=== PATIENT | female | born 1995 | race African-American/Black ===

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

== ENCOUNTER 2020-02-21 09:56 | Emergency (ER) | payer OTHER ==
[~2020-02-21] VITALS: Ht 162.6 cm; Wt 131.5 kg
[2020-02-21 11:05] LABS: URINE BILIRUBIN NEGATIVE (Negative); URINE BLOOD NEGATIVE (Negative); URINE COLOR YELLOW; URINE GLUCOSE-RANDOM* NEGATIVE (Negative); URINE KETONES NEGATIVE (Negative); URINE LEUKOCYTES-REFLEX 2+ (Negative); URINE NITRITE-REFLEX NEGATIVE (Negative); URINE PROTEIN (DIPSTICK) NEGATIVE (Negative); URINE UROBILINOGEN 0.2 E.U./dl (0.2-1.0)
[2020-02-21 11:06] LABS: URINE CLARITY SL HAZY
[2020-02-21] MEDS ORDERED: NORVASC10 MG PO (11:22)
[2020-02-21 11:23] LABS: CASTS None Seen /LPF (None Seen); CRYSTALS None Seen /LPF (None Seen); SQUAMOUS >10 Many /LPF (0-3); URINE RBC 0-2 Rare /HPF (0-2); URINE WBC-REFLEX 0-5 Rare /HPF (0-5)
[2020-02-21] MEDS ORDERED: HYDROCHLOROTHIA25 M2 PO (11:23)
[2020-02-21] MEDS ORDERED: MEDROXYPROGESTERONE INJECTION (11:24)
[2020-02-21 12:00] LABS: ABSOLUTE NEUTROPHILS 2.3 thou/uL (1.4-8.2); BASOPHILS 0.5 % (0.0-2.0); HEMATOCRIT 40.1 % (37.0-47.0); HEMOGLOBIN 12.9 gm/dL (12.0-15.0); LYMPHOCYTES 29.4 % (24.0-44.0); MCH 25.4 pg (26.0-34.0); MCHC 32.2 g/dL (28.0-37.0); MCV 78.8 fL (80.0-100.0); MONOCYTES 14.5 % (1.0-8.0); PLATELET COUNT 332 thou/uL (150-400); POLYS 54.6 % (36.0-66.0); RBC 5.09 mil/uL (4.20-5.00); RDW 18.1 % (10.5-14.5); WBC 4.2 thou/uL (4.0-11.0)
--- NOTE | 2020-02-21 12:12 | EKG ---
[address] [address] ELECTROCARDIOGRAM REPORT Name: HERB DOSHI Room #: [facility] [id number] Admission: 02/21/20 Attend Phys: Discharge: Date of : [birth year] Report #: [id number] [facility] ED Test Date: 2020-02-21 Test Time: 10:26:03 Pat Name: HERB DOSHI Department: Room: Gender: F Pharmacist'S Aide: juan : 1995 Requested By: William Marrero Order Number: [id number] MD: Dharmesh Ann Measurements Intervals Clifford Rate: 80 P: 42 [place]: 136 QRS: 42 QRSD: 74 T: 23 QT: 366 QTc: 423 Interpretive Statements Sinus rhythm No previous ECG available for comparison Electronically Signed On 02-21-2020 12:11:55 [employer] by Dharmesh Ann [email or web address] <ELECTRONICALLY SIGNED> By: Dharmesh Ann MD, [facility] 02/21/20 1211 1026 1026 Dharmesh Ann MD, FACC /EPI
[2020-02-21 12:13] LABS: CALCIUM 9.9 mg/dL (8.5-10.1); CREATININE 0.6 mg/dL (0.6-1.0); POTASSIUM 3.4 mmol/L (3.5-5.1)
[2020-02-21] MEDS ORDERED: MECLIZINE HCL25 M1 PO ×2 (12:17→12:19)
[2020-02-21 12:32] VITALS: BP 158/94
== END 2020-02-21 12:33 | disposition home or self-care (01) ==
LOC: ER 09:56
PROVIDERS: Emergency Medicine
DX: R42 Dizziness and giddiness (principal); Z20.828 Contact with and (suspected) exposure to other viral communicable diseases; Z88.1 Allergy status to other antibiotic agents; Z79.899 Other long term (current) drug therapy

== ENCOUNTER 2020-09-02 02:36 | Emergency (ER) | payer OTHER ==
[~2020-09-02] VITALS: Ht 162.6 cm; Wt 129.3 kg
[~2020-09-02 02:36] MED LIST: HYDROCHLOROTHIA25 M2 PO; MECLIZINE HCL25 M1 PO; MEDROXYPROGESTERONE INJECTION; NORVASC10 MG PO
[2020-09-02 02:38] VITALS: BP 157/84
[2020-09-02] MEDS ORDERED: BUTALB-APAP-CA1 EACH PO (03:05)
== END 2020-09-02 03:38 | disposition home or self-care (01) ==
LOC: ER 02:36
DX: R51.9 Headache, unspecified (principal); Z20.822 Contact with and (suspected) exposure to COVID-19; I11.0 Hypertensive heart disease with heart failure; I50.9 Heart failure, unspecified; E11.9 Type 2 diabetes mellitus without complications; Z88.1 Allergy status to other antibiotic agents